=== PATIENT | female | born 1995 | race African-American/Black ===

== ENCOUNTER 2024-04-14 01:33 | Emergency (ER) | payer OTHER ==
[~2024-04-14] VITALS: Ht 160 cm; Wt 86.2 kg
[2024-04-14 01:49] VITALS: BP 147/96; TEMP 98.2; O2SAT 98
[2024-04-14] MEDS ORDERED: IBUP-1957 PO (01:55)
[2024-04-14] MEDS ORDERED: AMOX500C2 PO (01:55)
[2024-04-14] MEDS ORDERED: KETOROLAC TROMETHAMINE INJ 30 MG/ML VIAL ONE (01:59)
[2024-04-14] MEDS ORDERED: AMOXICILLIN TRIHYDRATE 250 MG CAPSULE ONE (01:59)
[2024-04-14] MEDS: AMOXICILLIN TRIHYDRATE 500 MG CAPSULE PO ONE (02:00)
[2024-04-14] MEDS: KETOROLAC TROMETHAMINE INJ 30 MG/ML VIAL IM ONE (02:00)
== END 2024-04-14 02:06 | disposition home or self-care (01) ==
LOC: ER 01:36
DX: K11.20 Sialoadenitis, unspecified (principal); Z79.1 Long term (current) use of non-steroidal anti-inflammatories (NSAID)
CPT/HCPCS: 99283; 96372; J1885